=== PATIENT | male | born 1985 | race Caucasian/White ===

== ENCOUNTER → 2016-05-03 02:47 | Emergency (ER) | payer OTHER ==
[~2016-05-03 02:47] MED LIST: FLEXERIL10 M1 PO; NAPROSYN500 MG PO; NO MEDICATIONS
== END | disposition left against medical advice (07) ==
LOC: CED 02:47
DX: Z53.21 Procedure and treatment not carried out due to patient leaving prior to being seen by health care provider (principal)

== ENCOUNTER 2016-07-13 16:25 | Emergency (ER) | payer OTHER ==
[~2016-07-13 16:25] MED LIST changes: -NO MEDICATIONS
[2016-07-13] MEDS ORDERED: NO MEDICATIONS (16:41)
== END 2016-07-13 17:42 | disposition home or self-care (01) ==
LOC: SED 16:25
DX: M54.6 Pain in thoracic spine (principal); F17.210 Nicotine dependence, cigarettes, uncomplicated
CPT/HCPCS: 99283

== ENCOUNTER 2016-11-11 15:59 | Emergency (ER) | payer SELFPAY ==
[~2016-11-11 15:59] MED LIST changes: +NO MEDICATIONS
== END 2016-11-11 17:02 | disposition home or self-care (01) ==
LOC: SED 15:59
DX: M25.521 Pain in right elbow (principal); M25.531 Pain in right wrist; M79.641 Pain in right hand; J45.909 Unspecified asthma, uncomplicated; F17.210 Nicotine dependence, cigarettes, uncomplicated
CPT/HCPCS: 99283